=== PATIENT | male | born 1940 | race Caucasian/White ===

== ENCOUNTER → 2017-09-28 | Outpatient (CLI) | payer OTHER ==
[~2017-09-28] MED LIST: AMOXICILLIN 500 MG PO; ATOR-26 PO; CALCIUM PO; CARB0.5D OP; CARB25TA14 PO; CHOL100010 PO; CLOP1TAB54 PO; CYAN500T13 PO; CYCL0.05 OP; FOLI1TAB8 PO; HYDC25 PO; HYDR-3419 PO; LISI-461 PO; MULT-513 PO; NIAC500T8 PO; OMEG12006 PO; PANT40TA PO; POTA-327 PO; SERT100T PO; SRQ/50 PO; ZINC PO; ZOLP10TA6 PO
== END | disposition home or self-care (01) ==
LOC: C.PATHSPEC 16:55
PROVIDERS: ATTEND Physician Assistant
DX: C44.609 Unspecified malignant neoplasm of skin of left upper limb, including shoulder (principal); L82.1 Other seborrheic keratosis

== ENCOUNTER → 2017-09-28 | Outpatient (CLI) | payer OTHER | END | disposition home or self-care (01) | LOC: C.LABSPEC 16:28 | PROVIDERS: ATTEND Physician Assistant | DX: H02.89 Other specified disorders of eyelid (principal) ==

== ENCOUNTER → 2017-12-14 | Outpatient (CLI) | payer OTHER | END | disposition home or self-care (01) | LOC: C.PATHSPEC 11:52 | PROVIDERS: ATTEND Plastic Surgery | DX: L90.5 Scar conditions and fibrosis of skin (principal); Z85.828 Personal history of other malignant neoplasm of skin ==